=== PATIENT | male | born 1960 | race Caucasian/White ===

== ENCOUNTER 2019-05-28 13:00 | Outpatient (RCR) | payer OTHER, SELFPAY | END 2019-05-28 23:59 | disposition home or self-care (01) | LOC: ANHAUDIO 13:00 | PROVIDERS: PCP Internal Medicine; Visit Provider Internal Medicine | DX: Z46.1 Encounter for fitting and adjustment of hearing aid (principal) | CPT/HCPCS: 99199; V5160; V5261; V5264 ==

== ENCOUNTER 2019-07-16 14:48 | Outpatient (RCR) | payer OTHER, SELFPAY | END 2019-07-16 23:59 | disposition home or self-care (01) | LOC: ANHAUDIO 14:48 | PROVIDERS: PCP Internal Medicine | DX: Z46.1 Encounter for fitting and adjustment of hearing aid (principal) | CPT/HCPCS: 99199 ==

== ENCOUNTER 2019-07-17 13:05 | Emergency (ER) | payer OTHER, SELFPAY ==
--- NOTE | 2019-07-17 13:08 | ED.EAR ---
HPI - Ear Problem General Chief complaint: Ear Stated complaint: Trouble with ears Time Seen by Provider: 07/17/19 13:20 Source: patient and RN notes reviewed Mode of arrival: ambulatory Limitations: no limitations History of Present Illness HPI Narrative: 59-year-old male presents with concern for building up with pressure in his ears. Reports [facility] recently and told that his hearing aids were clogged with wax. He reports a history of needing to have his ears cleaned out. He denies placing any foreign bodies in his ear. Denies upper respiratory symptoms, rhinorrhea, nasal congestion, fever, ear pain. MD Complaint: other (Ear pressure) Location: left ear Related Data Home Medications Medication Instructions Recorded Confirmed atorvastatin 80 mg PO DAILY 07/17/19 07/17/19 bupropion HCl 100 mg PO DAILY 07/17/19 07/17/19 duloxetine 30 mg PO DAILY 07/17/19 07/17/19 gabapentin 300 mg PO HS 07/17/19 07/17/19 glimepiride 4 mg PO DAILY 07/17/19 07/17/19 insulin glargine [Lantus U-100 20 unit SUBCUT HS 07/17/19 07/17/19 Insulin] metformin 1,000 mg PO BID 07/17/19 07/17/19 sitagliptin [Januvia] 100 mg PO DAILY 07/17/19 07/17/19 Allergies Allergy/AdvReac Type Severity Reaction Status Date / Time Penicillins Allergy Sweating Verified 07/17/19 13:20 Review of Systems Review of Systems: Narrative: CONSTITUTIONAL: Denies malaise, chills, sweats, or fever. EYES: Denies visual changes ENT: Denies rhinorrhea, congestion, sinus pain, otalgia or sore throat. Reports ear fullness, pressure CARDIOVASCULAR: Denies chest pain, palpitations RESPIRATORY: Denies cough or dyspnea. SKIN: Denies rash or itching. All systems reviewed & are unremarkable except as noted in HPI and below PMFSH Comments At time of signature, agree with nursing past medical, surgical, social and family history. There is no relevant family history pertinent to the presenting complaint Exam Narrative: Exam Narrative: GENERAL: Well-appearing, well-nourished, and in no acute distress. HEAD: Normocephalic, atraumatic. EYES: PERRLA, conjunctivae clear, and EOMI. No nystagmus. ENT: Nares clear. Mucous membranes moist. Right TM pearly forbes with sharp light reflex left TM not visible due to cerumen impaction; no tragal tenderness. NECK: Supple. CHEST: No respiratory distress. Speaks in full sentences. HEART: Regular rate and rhythm. SKIN: Warm, dry, no rash. NEURO: Alert and oriented x3. PSYCH: Normal mood and affect Course Course Emergency Course: Patient is aware of diagnosis, understands and agrees to treatment plan. Anticipatory guidance given. Patient agrees to follow-up as directed and is aware of reasons to seek care at the emergency department. Portions of this record may have been created with voice recognition software Vital Signs Vital signs: Vital Signs Temperature 98.2 F 07/17/19 13:12 Pulse Rate 89 07/17/19 13:12 Respiratory Rate 16 07/17/19 13:12 Blood Pressure 116/77 07/17/19 13:12 Pulse Oximetry 100 07/17/19 13:12 Temperature 98.2 F 07/17/19 13:12 Pulse Rate 89 07/17/19 13:12 Respiratory Rate 16 07/17/19 13:12 Blood Pressure 116/77 07/17/19 13:12 Pulse Oximetry 100 07/17/19 13:12 Reviewed. Procedures Ear Wax Removal Left Ear: Ear Wax Removal Date: 07/17/19 Ear Wax Removal Time: 13:26 Cerumenolytic Used: Cerumenex and 5-10% Sodium Bicarb solution Results: Re-examined: cerumen removed completely TM Examination: TM(s) intact, normal appearance Ear Canal Exam: atraumatic Patient Tolerated Procedure: well Complications: no problems Technique: ear canal irrigated and ear canal curetted Medical Decision Making MDM Narrative Medical decision making narrative: Exam findings show no acute concerns or changes; patient is non-toxic appearing and is in no distress. Patient is appropriate for outpatient treatment and follow-up. Dif
[2019-07-17 13:12] VITALS: BP 116/77; PULSE 89; RESP 16; TEMP 36.8; O2SAT 100
== END 2019-07-17 13:53 | disposition home or self-care (01) ==
PROVIDERS: Emergency Provider Nurse Practitioner; PCP Internal Medicine
DX: H61.22 Impacted cerumen, left ear (principal); Z79.4 Long term (current) use of insulin; Z79.84 Long term (current) use of oral hypoglycemic drugs; E78.00 Pure hypercholesterolemia, unspecified; E11.9 Type 2 diabetes mellitus without complications; F41.9 Anxiety disorder, unspecified; F32.9 Major depressive disorder, single episode, unspecified
CPT/HCPCS: 69210; 99212; A9270; G0463

== ENCOUNTER 2019-10-21 11:30 | Outpatient (RCR) | payer OTHER, SELFPAY | END 2019-10-21 23:59 | disposition home or self-care (01) | LOC: ANHAUDIO 11:30 | PROVIDERS: PCP Internal Medicine; Visit Provider Internal Medicine | DX: Z46.1 Encounter for fitting and adjustment of hearing aid (principal) | CPT/HCPCS: 99199 ==

== ENCOUNTER 2020-02-02 11:30 | Outpatient (RCR) | payer OTHER, SELFPAY | END 2020-04-11 23:59 | disposition home or self-care (01) | LOC: ANHBWCAUD 11:30 | PROVIDERS: PCP Internal Medicine; Visit Provider Internal Medicine | DX: Z46.1 Encounter for fitting and adjustment of hearing aid (principal) | CPT/HCPCS: 99199 ==

== ENCOUNTER 2020-05-19 13:30 | Outpatient (RCR) | payer OTHER, SELFPAY | END 2020-05-23 23:59 | disposition home or self-care (01) | LOC: ANHBWCAUD 13:30 | PROVIDERS: PCP Internal Medicine; Visit Provider Internal Medicine | DX: Z46.1 Encounter for fitting and adjustment of hearing aid (principal) | CPT/HCPCS: 99199 ==

== ENCOUNTER 2020-08-04 14:30 | Outpatient (RCR) | payer OTHER, SELFPAY | END 2020-09-05 23:59 | disposition home or self-care (01) | LOC: ANHBWCAUD 14:30 | PROVIDERS: PCP Internal Medicine; Visit Provider Internal Medicine | DX: Z46.1 Encounter for fitting and adjustment of hearing aid (principal) | CPT/HCPCS: 99199; V5264 ==

== ENCOUNTER 2020-12-13 11:34 | Outpatient (RCR) | payer OTHER, SELFPAY | END 2021-03-13 23:59 | disposition home or self-care (01) | LOC: ANHBWCAUD 11:34 | PROVIDERS: PCP Internal Medicine; Visit Provider Internal Medicine | DX: Z46.1 Encounter for fitting and adjustment of hearing aid (principal) | CPT/HCPCS: 99199 ==

== ENCOUNTER 2021-10-20 10:54 | Outpatient (RCR) | payer OTHER, SELFPAY | END 2022-01-18 23:59 | disposition home or self-care (01) | LOC: ANHBWCAUD 10:54 | PROVIDERS: PCP Internal Medicine; Visit Provider Internal Medicine | DX: Z46.1 Encounter for fitting and adjustment of hearing aid (principal) | CPT/HCPCS: 99199 ==